=== PATIENT | male | born 1970 | race Hispanic/Latino ===

== ENCOUNTER 2018-05-29 17:23 | Emergency (ER) | payer BC ==
[~2018-05-29] VITALS: Ht 170.2 cm; Wt 98.0 kg
[2018-05-29 18:04] LABS: HEMATOCRIT 44.6 % (39.0-50.0); HEMOGLOBIN 14.6 g/dl (14.0-18.0); IMMATURE GRANULOCYTES 0.3 % (0.0-5.0); MEAN CELL VOLUME 94.7 fL CALC (80.0-100.0); MEAN CORPUSCULAR HGB CONC 32.7 g/L CALC (32.0-36.0); NEUT# 4.37 thou/uL (1.82-7.42); RED BLOOD COUNT 4.71 mill/uL (4.70-6.10); RED CELL DISTRI WIDTH 12.2 % (11.5-15.5)
[2018-05-29 18:25] LABS: ALBUMIN 4.3 g/dL (3.2-5.0); ALKALINE PHOSPHATASE 103 u/l (38-126); ANION GAP 14 (6-22 (CALC)); BILIRUBIN, TOTAL 0.4 mg/dL (0.0-1.4); BUN 18 mg/dL (9-20); BUN/CREATININE RATIO 17 (12-20 (CALC)); CARBON DIOXIDE 22 mmol/l (22-30); CHLORIDE 109 mmol/l (95-108); GFR > 60 ML/MIN (>=60 (CALC)); GFR FOR AFR.AMER. > 60 ML/MIN (>=60 (CALC)); POTASSIUM 4.4 mmol/l (3.5-5.1); SGOT/AST 34 u/l (17-59); SODIUM 141 mmol/l (137-146); TOTAL PROTEIN 7.8 g/dL (6.3-8.2)
[2018-05-29 19:47] LABS: URINE BILIRUBIN - DIPSTICK NEGATIVE (NEGATIVE); URINE BLOOD DIPSTICK NEGATIVE (NEGATIVE); URINE COLOR YELLOW; URINE GLUCOSE - DIPSTICK NEGATIVE (NEGATIVE); URINE KETONE NEGATIVE (NEGATIVE); URINE LEUK ESTERASE NEGATIVE (NEGATIVE); URINE NITRITE - DIPSTICK NEGATIVE (Negative); URINE PROTEIN - DIPSTICK NEGATIVE (NEG-TRACE); URINE SPECIFIC GRAVITY >=1.030; URINE UROBILINOGEN - DIPSTICK 0.2 E.U./dL (0.2)
[2018-05-29 19:51] LABS: BARBITURATES NEGATIVE (NEGATIVE); COCAINE NEGATIVE (NEGATIVE); METHADONE NEGATIVE (NEGATIVE); OXCYCODONE NEGATIVE (NEGATIVE); TETRAHYDROCANNABIONOL NEGATIVE (NEGATIVE); TRICYLIC ANTIDEPRESSANTS NEGATIVE (NEGATIVE)
[2018-05-29] MEDS ORDERED: ANTIVERT PO (20:15)
[2018-05-29 22:00] VITALS: BP 127/67
== END 2018-05-29 22:00 | disposition home or self-care (01) | DRG 313 ==
LOC: ED 17:23
PROVIDERS: Emergency Medicine
DX: R07.89 Other chest pain (principal); R42 Dizziness and giddiness; R20.2 Paresthesia of skin

== ENCOUNTER 2018-10-13 14:32 | Emergency (ER) | payer BC ==
[~2018-10-13] VITALS: Ht 170.2 cm; Wt 118.0 kg
[~2018-10-13 14:32] MED LIST: ANTIVERT PO
[2018-10-13] MEDS ORDERED: PREDNISONE20 MG PO (15:32)
[2018-10-13 15:40] VITALS: BP 132/77
[2018-10-13] MEDS ORDERED: AUGMENTIN875TAB PO (15:43)
[2018-10-13] MEDS ORDERED: CIPRODEX1 ML AU (15:44)
== END 2018-10-13 15:40 | disposition home or self-care (01) | DRG 156 ==
LOC: ED 14:32
DX: H60.93 Unspecified otitis externa, bilateral (principal); H92.03 Otalgia, bilateral; R50.9 Fever, unspecified

== ENCOUNTER 2022-05-08 09:41 | Emergency (ER) | payer SELFPAY ==
[~2022-05-08] VITALS: Ht 170.2 cm; Wt 109.1 kg
[~2022-05-08 09:41] MED LIST changes: +AUGMENTIN875TAB PO; +CIPRODEX1 ML AU; +PREDNISONE20 MG PO
[2022-05-08 11:19] VITALS: BP 136/68
[2022-05-08] MEDS ORDERED: ZPAK PO (12:03)
[2022-05-08] MEDS ORDERED: CORTISPORIN OTI10 M2 AU (12:03)
== END 2022-05-08 13:05 | disposition home or self-care (01) | DRG 156 ==
LOC: ED 09:41
DX: H60.92 Unspecified otitis externa, left ear (principal)

== ENCOUNTER 2023-05-21 06:45 | Day surgery (SDC) | payer OTHER ==
[~2023-05-21] VITALS: Ht 170.2 cm; Wt 133.8 kg
[~2023-05-21 06:45] MED LIST changes: +ALLEGRA ALLERGY60 MG PO; +AMBIEN5 MG PO; +ATORVASTATIN CA20 MG PO; +CORTISPORIN OTI10 M2 AU; +ZPAK PO; +ZYRTEC10 MG PO
[2023-05-21 09:37] VITALS: BP 112/72
== END 2023-05-21 09:25 | disposition home or self-care (01) | DRG 951 ==
LOC: ENDO 06:45
PROVIDERS: ATTEND Internal Medicine Gastroenterology
PROC: 0DBK8ZX Excision of Ascending Colon, Via Natural or Artificial Opening Endoscopic, Diagnostic (ICD-10-PCS; principal; 2023-05-21)
PROC: 0DBL8ZX Excision of Transverse Colon, Via Natural or Artificial Opening Endoscopic, Diagnostic (ICD-10-PCS; 2023-05-21)
PROC: 0DBN8ZX Excision of Sigmoid Colon, Via Natural or Artificial Opening Endoscopic, Diagnostic (ICD-10-PCS; 2023-05-21)
PROC: 0DBP8ZX Excision of Rectum, Via Natural or Artificial Opening Endoscopic, Diagnostic (ICD-10-PCS; 2023-05-21)
DX: Z12.11 Encounter for screening for malignant neoplasm of colon (principal); D12.2 Benign neoplasm of ascending colon; K63.5 Polyp of colon; K62.1 Rectal polyp; K64.8 Other hemorrhoids

== ENCOUNTER 2023-10-30 11:09 | Emergency (ER) | payer OTHER ==
[~2023-10-30] VITALS: Ht 170.2 cm; Wt 113.0 kg
[2023-10-30 12:03] LABS: URINE BLOOD DIPSTICK Moderate (NEGATIVE); URINE GLUCOSE - DIPSTICK Negative (NEGATIVE); URINE KETONE Trace mg/dL (NEGATIVE); URINE LEUK ESTERASE Trace (NEGATIVE); URINE PH 5.5 (4.5-8.0); URINE PROTEIN - DIPSTICK 30 mg/dL (NEG-TRACE); URINE SPECIFIC GRAVITY >=1.030; URINE UROBILINOGEN - DIPSTICK 0.2 E.U./dL (0.2)
[2023-10-30 12:04] LABS: URINE COLOR Yellow; URINE EPITHELIAL CELLS MODERATE EPI/hpf (0-FEW); URINE NITRITE - DIPSTICK Positive (Negative)
[2023-10-30 12:05] LABS: URINE BACTERIA MANY hpf
[2023-10-30 12:20] VITALS: BP 113/71
[2023-10-30 12:40] VITALS: BP 123/81
[2023-10-30 13:25] VITALS: BP 134/78
[2023-10-30] MEDS ORDERED: CIPROFLOXACN500 MG PO (13:31)
[2023-10-30 13:41] VITALS: BP 131/85
[2023-10-30 13:43] VITALS: BP 131/85
== END 2023-10-30 13:54 | disposition home or self-care (01) | DRG 690 ==
LOC: ED 11:09
PROVIDERS: Family Medicine
DX: N39.0 Urinary tract infection, site not specified (principal); B96.1 Klebsiella pneumoniae [K. pneumoniae] as the cause of diseases classified elsewhere; R73.03 Prediabetes